=== PATIENT | female | born 1955 | race Caucasian/White ===

== ENCOUNTER 2022-10-09 14:19 | Outpatient (CLI) | payer OTHER | END 2022-10-09 14:20 | disposition home or self-care (01) | LOC: CSHMAMMO 14:19 | PROVIDERS: ATTEND Family Medicine | DX: Z12.31 Encounter for screening mammogram for malignant neoplasm of breast (principal) | CPT/HCPCS: 77063; 77067 ==

== ENCOUNTER 2022-10-16 14:43 | Outpatient (CLI) | payer OTHER | END 2022-10-16 14:44 | disposition home or self-care (01) | LOC: CSHMAMMO 14:43 | PROVIDERS: ATTEND Family Medicine | DX: Z12.31 Encounter for screening mammogram for malignant neoplasm of breast (principal) | CPT/HCPCS: 77065; G0279 ==